=== PATIENT | female | born 1955 | race Caucasian/White ===

== ENCOUNTER 2018-06-27 00:58 | Observation (INO) | payer MEDICARE ==
[2018-06-27] VITALS (11 sets, daily range): BP systolic 124–167; BP diastolic 74–93; PULSE 79–105; RESP 17–19; Ht 165.1 cm; Wt 44.4 kg
[~2018-06-27] VITALS: Ht 165.1 cm; Wt 44.4 kg
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
[2018-06-27] MEDS ORDERED: MEMA5TAB PO (02:32)
[2018-06-27] MEDS ORDERED: GABA300C16 PO (02:32)
[2018-06-27] MEDS ORDERED: NACL 0.9% 3 ML SYG IV SCH (04:00)
[2018-06-27] MEDS ORDERED: DOCUSATE SODIUM 100 MG CAP PO PRN (04:00)
[2018-06-27] MEDS ORDERED: BISACODYL (EC) 5 MG TAB PO PRN (04:00)
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
[2018-06-27] MEDS: ACETAMINOPHEN 325 MG TAB PO PRN (10:20)
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
--- NOTE | 2018-06-27 15:32 | RADRPT ---
Echocardiogram Report Patient Name: BERNADETTE WORKMANPatient ID: [id number] : 1955 (63y 4m)Study Date: 06/27/2018 8:58:39 AM Gender: FAccession #: [id number] Tech: SAMANTHA Location: Ref.Physician: MAHESH OVALLES Height(Cm): BSA: Weight(Kg): Quality: GoodAccount #: Procedures: Echocardiographic Report: Transthoracic echocardiogram with complete 2D, M-Mode, and doppler examination. Indications: Syncope. Measurements: 2D/M Mode Doppler Measurement Value Normal Range Measurement Value Normal Range EF 2D 60.0 [ 54.0 - 74.0 ] percent GAYE Vmax 2.5 [ 2.0 - 4.0 ] cm2 LVOT Diam 2.0 [ 2.1 - 2.5 ] cm AV Mean Jorden 1.0 [ 70.0 - 90.0 ] cm/sec LVOT Area 3.1 cm2 AV Mean PG 4.0 [ 2.0 - 4.0 ] mmHg AV Peak Jorden 1.3 [ 100.0 - 170.0 ] cm/sec AV Peak PG 7.0 [ 2.0 - 9.0 ] mmHg AV VTI 27.7 cm LVOT Peak Jorden 1.1 [ 70.0 - 110.0 ] cm/sec LVOT Peak PG 5.0 [ 2.0 - 6.0 ] mmHg MV E Peak Jorden 0.9 [ 60.0 - 130.0 ] cm/sec MV A Peak Jorden 1.0 [ 100.0 - 120.0 ] cm/sec MV E/A 0.8 [ 0.8 - 1.5 ] ratio MV Decel Time 176 [ 104 - 258 ] msec Lat E` Jorden 0.1 [ 10.0 - 15.0 ] cm/sec Med E` Jorden 0.1 cm/sec MV E/A 0.8 [ 0.8 - 1.5 ] ratio PV Peak Jorden 1.1 [ 40.0 - 80.0 ] cm/sec PV Peak PG 5.0 mmHg RA Pressure 3.0 mmHg Findings: Left Ventricle: Normal left ventricular systolic function. Normal left ventricular cavity size. Normal left ventricular wall thickness. Ejection fraction is visually estimated at 60 %. Tissue Doppler/Mitral Doppler indices are consistent with impaired relaxation (Stage I diastolic dysfunction). Right Ventricle: Normal right ventricular size. Normal right ventricular systolic function. Left Atrium: The left atrium is normal in size. Right Atrium: The right atrium is normal in size. Mitral Valve: Normal appearance of the mitral valve. Mild mitral annular calcification. Mild to moderate mitral valve regurgitation. Aortic Valve: Normal appearance of the aortic valve. No significant aortic stenosis or insufficiency. Tricuspid Valve: Normal appearance and function of the tricuspid valve with trace physiologic regurgitation. Unable to obtain RVSP due to minimal presence of tricuspid regurgitation. Pulmonic Valve: Pulmonic valve not well visualized. Pericardium: Normal pericardium with no significant pericardial effusion. No pleural effusion noted. Aorta: Normal aortic root. IVC: Normal size and normal respiratory collapse consistent with normal right atrial pressure. Conclusions: Normal left ventricular systolic function. Grade 1 diastolic dysfunction. Mild-moderate mitral regurgitation. Trace tricuspid regurgitation. Electronically Signed By: Yael Ayon 2018-06-27 15:32:12 PST
[2018-06-27] MEDS: HYDROCODONE/APAP (5/325) TAB PO PRN (15:52)
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
[2018-06-27] MEDS ORDERED: HYDROmorphONE 1 MG/ML SYG IV ONE (16:00)
[2018-06-27] MEDS ORDERED: TRAM50TA2 PO (17:07)
[2018-06-27] MEDS ORDERED: OXYM-21 NASAL (17:14)
[2018-06-27] MEDS ORDERED: OXAZ30CA2 PO (17:14)
[2018-06-27] MEDS ORDERED: MONT10TA21 PO (17:14)
[2018-06-27] MEDS ORDERED: NORT50CA PO (17:14)
[2018-06-27] MEDS ORDERED: CLON0.5T PO (17:14)
[2018-06-27] MEDS ORDERED: MORP-72 PO (17:14)
[2018-06-27] MEDS ORDERED: MEMANTINE 10 MG TAB PO ONE (18:30)
[2018-06-27] MEDS: GABAPENTIN 300 MG CAP PO SCH (21:00)
[2018-06-27] MEDS: DIVALPROEX (EC) 250 MG TAB PO SCH (21:23)
[2018-06-27] MEDS: ATORVASTATIN 10 MG TAB PO SCH (21:24)
[2018-06-27] MEDS: MONTELUKAST 10 MG TAB PO SCH (21:25)
[2018-06-27] MEDS: ALPRAZOLAM 0.25 MG TAB PO SCH (21:26)
[2018-06-28] VITALS (13 sets, daily range): BP systolic 115–138; BP diastolic 76–83; PULSE 74–99; RESP 16–20
[2018-06-28] MEDS: ALPRAZOLAM 0.25 MG TAB PO SCH (08:42)
[2018-06-28] MEDS: DIVALPROEX (EC) 250 MG TAB PO SCH ×2 (08:42→21:48)
[2018-06-28] MEDS: GABAPENTIN 300 MG CAP PO SCH ×3 (08:42→22:37)
[2018-06-28] MEDS: MEMANTINE 10 MG TAB PO SCH (08:42)
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
[2018-06-28] MEDS: HYDROCODONE/APAP (5/325) TAB PO PRN ×2 (13:39→21:49)
[2018-06-28] MEDS ORDERED: [UNRECOGNIZED DRUG - OTHER] PO (15:51)
[2018-06-28] MEDS ORDERED: TOPI50TA13 PO (15:52)
[2018-06-28] MEDS: ATORVASTATIN 10 MG TAB PO SCH (21:48)
[2018-06-28] MEDS: MONTELUKAST 10 MG TAB PO SCH (21:48)
[2018-06-29 01:46] VITALS: BP 124/78; PULSE 81; RESP 16
[2018-06-29] MEDS: GABAPENTIN 300 MG CAP PO SCH ×2 (08:56→13:16)
[2018-06-29] MEDS: ACETAMINOPHEN 325 MG TAB PO PRN ×2 (08:57→15:07)
[2018-06-29] MEDS: DIVALPROEX (EC) 250 MG TAB PO SCH (08:57)
[2018-06-29 09:00] VITALS: BP_SYST 122; BP_SYST 126; BP_SYST 128; BP_DIAS 73; BP_DIAS 76; BP_DIAS 77; PULSE 80
[2018-06-29 09:33] VITALS: BP 116/69; PULSE 97; RESP 18
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
[2018-06-29] MEDS: MEMANTINE 10 MG TAB PO SCH (09:43)
--- NOTE | 2018-06-29 12:11 | PDOCDIS ---
Discharge Instructions CONDITION [id number] Patient Condition: [id number] Stable FOLLOW UP/APPOINTMENTS Follow-up Plan Dr. Brannon Clifford MD Office address: [address] [place] [address] OTHER ORDERS: Other Orders: 1. Followup with your primary doctor within the next 1-2 weeks. If you don't have one please let someone know, we can give you resources that may help you pick one. You may call Dr Adrien Flaherty's office. he's accepting new patients Name, Degree: Adrien Flaherty MD Specialty: Internal Medicine Comments: Office Address: [address] [place] [address] [place] [id number] Office Office You may also call your insurance company to assign one to you. 2. Review your medication list with your nurse before leaving and if you need new prescriptions please let your nurse know. 3. I may have made changes to your home medications or given you new prescriptions, please let your primary doctor know as well. 4. Stay compliant with your medications and report any side effects to your PCP or pharmacist. 5. Return to the ER if you have any concerns and cannot reach your doctors or call your insurance company, they usually have a nurse that can help you. BASSAM ZAPIEN Jun 29, 2018 11:52
[2018-06-29] MEDS ORDERED: CLON0.5T PO (12:19)
[2018-06-29] MEDS ORDERED: TRAM50TA2 PO (12:19)
[2018-06-29] MEDS ORDERED: DIV250 PO (12:19)
[2018-06-29] MEDS ORDERED: ATOR10TA65 PO (12:19)
[2018-06-29] MEDS ORDERED: MEMA10TA20 PO (12:19)
[2018-06-29] MEDS ORDERED: traMADol 50 MG TAB PO PRN (12:30)
[2018-06-29 15:03] VITALS: BP 128/78; PULSE 90; RESP 18
--- NOTE | 2018-06-29 15:45 | CONS ---
Assessment/Plan Assessment/Plan Hospital Course 63 F c / reported Hx of chronic daily headache and cannabis use, who presents for evaluation of ams...for which neurology is consulted.. UDS: Cannabis + ...a possible contributor.. Frequent ETOH use ... a possible contributor.. An acute encephalopathy is not yet excluded.. Progression of an underlying chronic neurodegenerative disease (ie mild-moderate dementia) is possible.. MR brain is notable for mild generalized atrophy, but is without obvious acute intracranial pathology.. P: Await B1 [place] as necessary Limit sedating medications where possible Hold Namenda in the short-term Other management and supportive care per primary Will follow clinically Consultation Date/Type/Reason Admit Date/Time Jun 27, 2018 at 03:39 Type of Consult Neurology Reason for Consultation ams Requesting Provider: CINDY GAYTAN MD Date/Time of Note DATE: 06/29/18 TIME: 15:45 24 HR Interval Summary Free Text/Dictation Continues acute care s/p MRI brain Exam Vital Signs Vitals Vital Signs Date Temp Pulse Resp B/P (MAP) Pulse Ox O2 O2 Flow FiO2 Time Delivery Rate 06/29/18 98.2 90 18 128/78 99 15:03 (95) 06/27/18 Room Air 16:43 Intake and Output 06/28/18 06/28/18 06/29/18 1515:00 23:00 07:00 IntakeIntake Total 790 ml 360 ml BalanceBalance 790 ml 360 ml Exam Exam PE: Gen Appearance: No Apparent Distress HEENT: Normocephalic Cardiovascular: Regular rate Abdomen: Soft Extremities: Dry NE: The patient was alert and oriented to person, hospital, month, year, and situation. She had difficulty when asked to spell WORLD backwards, though she was able to recall all three words after a five minute delay. Language was normal. Fund of knowledge was adequate.. Pupils were equal and reactive to light. There was no afferent pupillary defect. Visual nagel were normal. Funduscopic examination was limited. Extra-ocular movements were full. Ptosis was absent. There was no nystagmus. Facial sensation was normal. Face was symmetric with normal strength. Hearing was intact. Palate movements were normal. Neck strength was normal. There was normal tongue bulk and speed of movement. Tone was normal. Muscle bulk was normal. I did not see fasciculations. Arms and legs were strong. Vibration sensation was normal. Temperature and pinprick sensation was normal. Rapid alternating movements were normal. There was no dysmetria. There was no intention tremor. Gait was deferred due to bedrest. Arm and leg reflexes were 2+ and symmetric. Dumas's sign was absent. Plantar responses were flexor. RAI LAZARO NP Jun 29, 2018 15:45 LULY NGUYEN Jun 29, 2018 16:13
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
== END 2018-06-29 18:45 | disposition home or self-care (01) ==
LOC: E/R 00:58 → UNDOADMIN 03:39 → TEL 03:39 → EDBEDREQ 06:17 → 2NE 06-28 18:17
PROVIDERS: ADMIT Family Medicine; ATTEND Family Medicine
DX: R41.82 Altered mental status, unspecified (principal); R55 Syncope and collapse; G89.4 Chronic pain syndrome; D32.9 Benign neoplasm of meninges, unspecified; E87.6 Hypokalemia; E78.5 Hyperlipidemia, unspecified; J45.909 Unspecified asthma, uncomplicated
CPT/HCPCS: 70450; 70553; 71045; 80053; 80061; 80307; 81003; 82607; 82962; 83036; 83735; 84425; 84443; 85025; 85610; 85730; 86592; 86803; 87340; 93005; 93306; 93880; 97161; 99285; G0378; 99217; J1170